=== PATIENT | male | born 1950 | race Hispanic/Latino ===

== ENCOUNTER → 2024-02-29 | Day surgery (SDC) | payer OTHER ==
[2024-02-25 11:41] LABS: BASOPHILS % 0.5 % (0.0-1.0); EOSINOPHILS # (AUTO) 0.1 (0.0-0.4); HEMATOCRIT 41.5 % (38.2-49.6); HEMOGLOBIN 13.7 g/dL (14.0-18.0); LYMPHOCYTES # (AUTO) 1.4 (1.0-3.2); LYMPHOCYTES % 22.7 % (18.0-39.1); MEAN CORPUSCULAR HEMOGLOBIN 30.3 pg (28-32); MEAN CORPUSCULAR VOLUME 91.8 fL (81-99); MONOCYTES # (AUTO) 0.4 (0.2-0.8); MONOCYTES % 7.1 % (4.4-11.3); NEUTROPHILS # (AUTO) 4.2 (2.1-6.9); NEUTROPHILS % 68.5 % (38.7-80.0); PLATELET COUNT 183 x10e3/uL (140-360); RED BLOOD COUNT 4.52 x10e6/uL (4.3-5.7); RED CELL DISTRIBUTION WIDTH 12.3 % (11.7-14.4); WHITE BLOOD COUNT 6.09 x10e3/uL (4.8-10.8)
[2024-02-25 12:05] LABS: ANION GAP 14.6 mmol/L (8-16); CALCIUM 9.9 mg/dL (8.4-10.2); CREATININE, SERUM 1.23 mg/dL (0.72-1.25); POTASSIUM 3.6 mmol/L (3.5-5.1)
[~2024-02-29] MED LIST: ACETAMINOPHEN 1000 MG/100 ML 0 ML IV ONE; ACETAMINOPHEN 1000 MG/100 ML 100 ML IV ONE; ACETAMINOPHEN/CODEINE 300MG - 30MG TAB ONE; AMLODIPINE BESYL5 MG PO; CIPRO250 MG PO; EPHEDRINE SULFATE INJ 50 MG/ML VIAL ONE; FENTANYL CITRATE/PF 100MCG/2 ML INJ ONE; FINASTERIDE5 MG PO; FLOMAX0.4 MG PO; LIDOCAINE HCL 2% LOCAL INJ 5 ML SDV VIAL INJ ONE; LIPITOR10 MG PO; METFORMIN HCL500 MG PO; METOCLOPRAMIDE HCL 10 MG/2ML VIAL ONE; NEOSTIGMINE 1 MG/ML 10ML VIAL ONE; OMEPRAZOLE40 MG PO; ONDANSETRON HCL INJ 2MG/ML 2ML 2 MG/ML VIAL ONE; PROPOFOL IV EMULSION 10 MG/ML 20 ML VIAL ONE; SEVOFLURANE INHAL SOLN 250 ML PEN BTL ONE; ZESTRIL10 MG PO
[2024-02-29] MEDS: LACTATED RINGER'S 1,000 ML ONE (06:01)
[2024-02-29] MEDS: ACETAMINOPHEN/CODEINE 300MG - 30MG TAB PO ONE (08:45)
[2024-02-29 09:15] VITALS: BP 130/67; PULSE 94; RESP 18; O2SAT 97
== END | disposition home or self-care (01) ==
LOC: OR 05:15
PROVIDERS: ATTEND Urology
DX: N47.1 Phimosis (principal); N48.1 Balanitis; I10 Essential (primary) hypertension; E78.5 Hyperlipidemia, unspecified; E11.9 Type 2 diabetes mellitus without complications; K21.9 Gastro-esophageal reflux disease without esophagitis; K44.9 Diaphragmatic hernia without obstruction or gangrene; Z01.810 Encounter for preprocedural cardiovascular examination; Z01.812 Encounter for preprocedural laboratory examination; Z01.818 Encounter for other preprocedural examination; Z79.84 Long term (current) use of oral hypoglycemic drugs; Z79.899 Other long term (current) drug therapy
CPT/HCPCS: 36415 ×2; 54001; 71046; 80048; 82948; 85025; 93005; J0131; J0690; J2001; J2405; J2704; J2710; J2765; J3010; J7121